=== PATIENT | female | born 1980 | race African-American/Black ===

== ENCOUNTER 2018-01-23 18:50 | Emergency (ER) | payer OTHER ==
[2018-01-23] MEDS ORDERED: LIDOCAINE 1% INJ-PF (10 MG/ML) 30 ML SDV INJ ONE (20:08)
--- NOTE | 2018-01-23 20:11 | ER Document Report ---
ED General - General Chief Complaint: Finger Injury Stated Complaint: FINGER INJURY Time Seen by Provider: 01/23/18 19:34 Notes: Patient is a 38-year-old female who presents to the emergency department with right second finger pain. She states that this started over the weekend, but she originally noticed that she had this pain on January 08. She also has she states she feels there is fluid inside her finger. She was seen by [facility] and sent home with Keflex, and was told she had a cut to the area, but no interventions were done. She denies any fever, chills, or redness to the area. She does get artificial nails done at a nail salon. TRAVEL OUTSIDE OF THE [place] IN LAST 30 DAYS: No - Related Data Allergies/Adverse Reactions: No Known Allergies Allergy (Unverified 01/12/14 17:15) Past Medical History - Social History Smoking Status: Never Smoker Frequency of alcohol use: None Drug Abuse: None Family History: Reviewed & Not Pertinent Review of Systems - Review of Systems Notes: REVIEW OF SYSTEMS: CONSTITUTIONAL : Denies recent illness. Denies recent unintentional weight loss. Denies fever, chills, or sweats. EENT: Denies eye, ear, throat, or mouth pain, discharge, or symptoms. Denies nasal or sinus congestion. CARDIOVASCULAR: Denies chest pain. RESPIRATORY: Denies shortness of breath, cough, congestion, difficulty breathing , or wheezing. GASTROINTESTINAL: Denies nausea, vomiting, and diarrhea. Denies abdominal pain. Denies constipation. GENITOURINARY: Denies difficulty urinating, burning, blood in urine, urgency or frequency. MUSCULOSKELETAL: Denies neck and back pain. See HPI SKIN: See HPI HEMATOLOGIC : Denies easy bruising or bleeding. LYMPHATIC: Denies swollen, painful, enlarged glands. NEUROLOGICAL: Denies no numbness or tingling denies weakness. Denies headache. Denies altered mental status. Denies alteration in speech. PSYCHIATRIC: Denies stress, anxiety, alteration in sleep patterns, or depression. All other systems reviewed and negative. Physical Exam - Vital signs Vitals: Temp Pulse Resp BP Pulse Ox 97.9 F 70 16 140/96 H 99 01/23/18 19:19 01/23/18 19:19 01/23/18 19:19 01/23/18 19:19 01/23/18 19:19 - Notes Notes: PHYSICAL EXAMINATION: GENERAL: Appears well, healthy, well-nourished, no acute distress. HEAD: Normocephalic, atraumatic. EYES: PERRL, conjunctiva normal, all extraocular movements intact, sclera nonicteric ENT: Moist mucous membranes. NECK: Supple, no noticeable swelling, redness, rash. Normal range of motion. LUNGS: Equal breath sounds bilaterally and clear to auscultation. No wheezes rales or rhonchi. CARDIOVASCULAR: S1-S2, regular rate, regular rhythm. Radial pulses 2+, normal. ABDOMEN: Normoactive bowel sounds. Soft, nontender, no guarding, no rebound tenderness, and no masses palpated. EXTREMITIES: Decreased range of motion to right second digit, edema noted. No cyanosis. NEUROLOGICAL: Moves all extremities upon command. Strength 5/5 in all extremities. PSYCH: Normal mood, normal affect. SKIN: Paronychia noted to right second digit with extension to the DIP. Course - Re-evaluation Re-evalutation: Patient tolerated procedure well. Due to the paronychia extending to the first knuckle, I will send her for referral to orthopedic surgery to further evaluate her infection. She is stable for discharge. Discharge instructions were given at bedside. She verbalized understanding. - Vital Signs Vital signs: Temp Pulse Resp BP Pulse Ox 97.2 F 65 18 146/101 H 100 01/23/18 21:32 01/23/18 21:32 01/23/18 21:32 01/23/18 21:32 01/23/18 21:32 Procedures - Incision and Drainage Right 2nd digit Type: Simple Anesthetic type: 1% Lidocaine, 0.5% Bupivacaine mL's of anesthetic: 6 Blade size: 11 I&D procedure: Shurclens applied Incision Method: Incision made by scalpel Discharge - Discharge Clinical Impression: Paronychia of finger Qualifiers: Laterality: right Qualified Code(s): L03.011 - Cellulitis of right finger Condition: Stable Disposition: HOME, SELF-CARE Additional Instructions: You have been seen in the emergency department for an infection at the base of your fingernail. Please follow-up with orthopedic surgery and have them assess your finger. You have been sent home with antibiotics. Please finish all your antibiotic as prescribed. If you develop a fever greater than 100.4 F, have worsening redness or swelling, please return to the emergency department. Prescriptions: Sulfamethoxazole/Trimethoprim [Bactrim Ds Tablet] 1 each PO BID 7 Days #14 tablet Referrals: DULCE RUFFIN DO [ACTIVE STAFF] - Follow up tomorrow
[2018-01-23] MEDS ORDERED: BUPIVACAINE HCL 0.5 % INJ/PF 30 ML SDV INJ ONE (20:13)
[2018-01-23] MEDS ORDERED: SULFAMETHOXAZOLE/TRIMETHOPRIM 800-160 MG TABLET PO ONE (21:25)
[2018-01-23 21:33] VITALS: BP 146/101
== END 2018-01-23 21:33 | disposition home or self-care (01) ==
LOC: ER 18:50
DX: L03.011 Cellulitis of right finger (principal); M79.644 Pain in right finger(s)
CPT/HCPCS: 99283; 10060; J3490 ×2